=== PATIENT | female | born 1960 | race Caucasian/White ===

== ENCOUNTER 2023-01-03 01:34 | Inpatient (IN) | payer MEDICAID ==
[~2023-01-03] VITALS: Ht 162.6 cm; Wt 81.6 kg
[~2023-01-03 01:34] MED LIST: AMOX-423 PO; BENZ1TAB7 PO; BUPR-120 PO; CYCL10TA24 PO; DITXL5 PO; FERR-31 PO; FLUT1BLS5 IH; HYDR25TA4 PO; ISOS60TA71 PO; LEVE250T2 PO; MECL-225 PO; NOR10 PO; OMEP40CA20 PO; ONDA4TAB55 PO; POTA-197 PO; PRED50TA PO; ROPI0.255 PO
[2023-01-03 01:42] VITALS: BP_SYST 132
--- NOTE | 2023-01-03 01:42 | NUR ---
Patient to ER HALLWAY BED for evaluation. Report given to LILY GOMEZ
--- NOTE | 2023-01-03 01:45 | NUR ---
ER at bedside examining patient.
--- NOTE | 2023-01-03 01:45 | NUR ---
PATIENT BIB BLS COMPLAINING OF INCREASED AUDITORY HALLUCTIONATIONS. HX OF SCHIZOPHRENIA. DENIES ANY SI/HI. DENIES ANY PAIN. VSS. NAD.
[2023-01-03 02:20] LABS: BASOPHILS # (AUTO) 0.1 K/uL (0.0-0.2); BASOPHILS % (AUTO) 0.7 % (0.0-2.0); EOSINOPHILS # (AUTO) 0.1 K/uL (0.0-0.4); EOSINOPHILS % (AUTO) 0.9 % (0.0-4.0); HEMATOCRIT 36.4 % (36-48); HEMOGLOBIN 12.4 g/dL (12.0-16.0); LYMPHOCYTES # (AUTO) 2.6 K/uL (1.0-5.5); LYMPHOCYTES % (AUTO) 17.4 % (20.5-51.5); MEAN CORPUSCULAR HEMOGLOBIN 31 pg (27-31); MEAN CORPUSCULAR HGB CONC 34 % (32-36); MEAN CORPUSCULAR VOLUME 92 fL (79.0-98.0); MONOCYTES # (AUTO) 1.6 K/uL (0.0-1.0); MONOCYTES % (AUTO) 10.7 % (1.7-9.3); NEUTROPHILS # (AUTO) 10.4 K/uL (1.8-7.7); NEUTROPHILS % (AUTO) 70.3 % (40.0-70.0); PLATELET COUNT (AUTO) 366 K/uL (130-430); RED BLOOD CELL COUNT(AUTO) 3.98 MIL/uL (4.2-6.2); RED CELL DISTRIBUTION WIDTH 14.1 % (9.0-15.0); WHITE BLOOD COUNT (AUTO) 14.8 K/uL (4.8-10.8)
[2023-01-03 02:37] LABS: ALBUMIN 3.3 g/dL (3.4-4.8); CALCIUM 9.3 mg/dL (8.4-11.0); CREATININE 1.01 mg/dL (0.55-1.30); TOTAL BILIRUBIN 0.3 mg/dL (0.0-1.0)
[2023-01-03] MEDS ORDERED: POTASSIUM CHLORIDE 20 MEQ/PKT PACKET PO ONE (03:00)
--- NOTE | 2023-01-03 03:00 | NUR ---
PATIENT STATES SHE TAKES NORCO AT HOME FOR BACK PAIN. NEW ORDER FOR TORADOL IM.
[2023-01-03 03:07] LABS: BARBITURATE, URINE NEGATIVE (NEG <=200); BENZODIAZEPINE, URINE NEGATIVE (NEG <=150); CANNABINOID, URINE NEGATIVE (NEG <=50); COCAINE, URINE NEGATIVE (NEG <=150); METHAMPHETAMINES SCREEN,URINE NEGATIVE (NEG <=500); OPIATE, URINE NEGATIVE (NEG <=100); PHENCYCLIDINE SCREEN,URINE NEGATIVE (NEG <=25); URINE AMPHETAMINE NEGATIVE (NEG <=500); URINE METHADONE NEGATIVE (NEG <=200); URINE OXYCODONE SCREEN NEGATIVE (NEG <=100); URINE PROPOXYPHENE SCREEN NEGATIVE (NEG <=300)
[2023-01-03 03:08] LABS: UR TRICYCLIC ANTIDEPRESSANTS NEGATIVE (NEG <=300)
[2023-01-03 03:13] LABS: BILIRUBIN,URINE NEGATIVE (NEGATIVE); BLOOD, URINE NEGATIVE (NEGATIVE); CLARITY/URINE CLEAR (CLEAR); COLOR,URINE YELLOW (YELLOW); GLUCOSE,URINE NEGATIVE (NEGATIVE); KETONES,URINE NEGATIVE (NEGATIVE); LEUKOCYTE ESTERASE ,URINE 2+ (NEGATIVE); NITRITE, URINE NEGATIVE (NEGATIVE); PROTEIN URINE NEGATIVE (NEGATIVE)
[2023-01-03 03:14] LABS: UROBILINOGEN,URINE NEGATIVE (0.2-1.0)
[2023-01-03 03:15] LABS: BACTERIA,URINE RARE /HPF (None Seen)
[2023-01-03] MEDS ORDERED: KETOROLAC TROMETHAMINE 60 MG/2 ML VIAL IM ONE (03:15)
[2023-01-03] MEDS ORDERED: HALOPERIDOL LACTATE 5 MG/ML VIAL IM ONE ×2 (03:30→07:45)
--- NOTE | 2023-01-03 03:52 | NUR ---
PATIENT ACTIVELY AND LOUDLY RESPONDING TO INTERNAL STIMULI. PT DENIES COMMAND AH. NEW ORDER FOR HALDOL.
--- NOTE | 2023-01-03 06:39 | NUR ---
NOTIFIED ED ADMITTING, SONNY, REGARDING DR. LEE'S REQUEST FOR ADMISSION. PER DR. LEE PT IS NOT STABLE FOR TRANSFER. WILL CONTACT CREATIVE PERFUMER REGARDING THIS MATTER. PER FACESHEET: [facility]
[2023-01-03] MEDS ORDERED: cefTRIAXone 1 GM in LIDOCAINE 1%, 20 ML MDV 2.1 ML IM ONE (07:00)
[2023-01-03] MEDS ORDERED: NACL 0.9% 1,000 ML IV SCH (07:15)
--- NOTE | 2023-01-03 07:18 | NUR ---
Admit bed requested Patient will be admitted to care of . Admitted to TELE unit. Diagnosis HYPONATREMIA, HYPOKALEMIA Inpatient (Yes or No) YES Observation (Yes or No) NO Orientation concerns or request close to nursing station (Yes or No) NO Covid Status NA On vent or bipap NO Isolation requirements NO Needs a sitter NO From Home (Yes or if No enter name of facility) HOME Requires Dialysis (Yes or No) NO Med Rec Completed (Yes of No) YES
[2023-01-03] MEDS ORDERED: OLAN5TAB71 PO (07:28)
[2023-01-03] MEDS ORDERED: MIRT-91 PO (07:28)
[2023-01-03] MEDS ORDERED: LISI40TA13 PO (07:28)
[2023-01-03] MEDS ORDERED: METO-442 PO (07:28)
[2023-01-03] MEDS ORDERED: MELO-89 PO (07:28)
[2023-01-03] MEDS ORDERED: ERGO1250 PO (07:28)
[2023-01-03] MEDS: NACL 0.9% 1,000 ML IV ONE ×2 (07:43→07:45)
[2023-01-03] MEDS ORDERED: cefTRIAXone 1 GM IVPB PREMIX 50 ML IV ONE (08:00)
--- NOTE | 2023-01-03 08:37 | NUR ---
BREAKFAST TRAY PROVIDED TO PT
[2023-01-03 09:40] VITALS: BP_SYST 144
--- NOTE | 2023-01-03 09:40 | NUR ---
Patient does not wish to proceed with medical care recommended by Dr mensah . Patient given information related to possible complications, up to and including , which could occur as a result of leaving hospital at this time. Patient verbalizes understanding of risks involved leaving against medical advice. Patient has signed AMA form.
[2023-01-03] MEDS ORDERED: CEPH-548 PO (09:42)
[2023-01-03] MEDS ORDERED: ALBMDI INH (09:42)
[2023-01-03] MEDS ORDERED: ALBUTEROL SULFATE 0.083% 2.5 MG/3 ML VIAL.NEB INH ONE (09:45)
--- NOTE | 2023-01-03 09:46 | NUR ---
NOTIFIED MST AND DR. BARNES PT SIGNED OUT AMA
== END 2023-01-03 09:46 | disposition left against medical advice (07) | DRG 463 ==
LOC: SED 01:34 → STU 07:06
PROVIDERS: ADMIT Internal Medicine; ATTEND Internal Medicine
DX: N39.0 Urinary tract infection, site not specified (principal); E87.1 Hypo-osmolality and hyponatremia; E87.6 Hypokalemia; J44.9 Chronic obstructive pulmonary disease, unspecified; I10 Essential (primary) hypertension; Z53.21 Procedure and treatment not carried out due to patient leaving prior to being seen by health care provider; I25.2 Old myocardial infarction; Z86.73 Personal history of transient ischemic attack (TIA), and cerebral infarction without residual deficits; Z79.899 Other long term (current) drug therapy
CPT/HCPCS: 36415; 80053; 80307; 81000; 85025; 96361; 96365; 96372; 99285; G0378; J0696; J1630; J1885; J2001; J7030; J7613

== ENCOUNTER 2023-02-25 16:38 | Emergency (ER) | payer MEDICAID ==
[~2023-02-25] VITALS: Ht 162.6 cm; Wt 74.8 kg
[~2023-02-25 16:38] MED LIST changes: +ALBMDI INH; +CEPH-548 PO; +ERGO1250 PO; +IBUP-1969 PO; +LISI40TA13 PO; +MELO-89 PO; +METO-442 PO; +MIRT-91 PO; +OLAN5TAB71 PO
[2023-02-25 16:46] VITALS: BP_SYST 175; PULSE 83; RESP 22; TEMP 96.6; O2SAT 99
[2023-02-25] MEDS ORDERED: ALBUTEROL SULFATE 0.083% 2.5 MG/3 ML VIAL.NEB INH ONE (17:45)
[2023-02-25] MEDS ORDERED: IPRATROPIUM BROM 0.5 MG/2.5 ML VIAL.NEB (ATROVENT) INH ONE (17:45)
[2023-02-25 18:14] LABS: BASOPHILS # (AUTO) 0.1 K/uL (0.0-0.2); BASOPHILS % (AUTO) 0.7 % (0.0-2.0); EOSINOPHILS # (AUTO) 0.1 K/uL (0.0-0.4); EOSINOPHILS % (AUTO) 1.3 % (0.0-4.0); HEMATOCRIT 36.4 % (36-48); HEMOGLOBIN 11.7 g/dL (12.0-16.0); LYMPHOCYTES # (AUTO) 1.3 K/uL (1.0-5.5); LYMPHOCYTES % (AUTO) 15.8 % (20.5-51.5); MEAN CORPUSCULAR HEMOGLOBIN 30 pg (27-31); MEAN CORPUSCULAR HGB CONC 32 % (32-36); MEAN CORPUSCULAR VOLUME 93 fL (79.0-98.0); MONOCYTES # (AUTO) 0.5 K/uL (0.0-1.0); MONOCYTES % (AUTO) 6.4 % (1.7-9.3); NEUTROPHILS % (AUTO) 75.8 % (40.0-70.0); PLATELET COUNT (AUTO) 248 K/uL (130-430); RED CELL DISTRIBUTION WIDTH 13.8 % (9.0-15.0)
[2023-02-25 18:22] LABS: ANION GAP 5 (5-15); CALCIUM 9.1 mg/dL (8.4-11.0); CARBON DIOXIDE 36 mmol/L (23-29); CHLORIDE 98 mmol/L (98-107); CREATININE 0.64 mg/dL (0.55-1.30); GFR AFRICAN AMERICAN 121 mL/min (>90); GLUCOSE 104 mg/dL (74-106); POTASSIUM 3.3 mmol/L (3.5-5.1); SODIUM SERUM 139 mmol/L (136-145); UREA NITROGEN, BLOOD 5 mg/dL (8-21)
[2023-02-25 18:25] LABS: GFR NON AFRICAN-AMERICAN 100 mL/min (>90)
[2023-02-25 18:37] LABS: ALBUMIN 3.1 g/dL (3.4-4.8); ASPARTATE AMINOTRANSFERASE 16 U/L (10-37); TOTAL BILIRUBIN 0.5 mg/dL (0.0-1.0); TOTAL PROTEIN, SERUM 6.7 g/dL (6.4-8.3)
[2023-02-25 19:05] LABS: ALANINE AMINOTRANSFERASE 8 U/L (12-78)
[2023-02-25 19:47] LABS: INFLUENZA TYPE A negative (NEGATIVE); INFLUENZA TYPE B NEGATIVE (NEGATIVE)
[2023-02-25 19:48] LABS: COVID19 ANTIGEN SOFIA FIA NEGATIVE (NEGATIVE)
[2023-02-25] MEDS ORDERED: HYDROcodone/ACETAMIN 10-325 MG TAB PO ONE (20:45)
[2023-02-25 20:59] VITALS: BP_SYST 133; PULSE 82; RESP 20; TEMP 96.6; O2SAT 99
== END 2023-02-25 20:59 | disposition home or self-care (01) ==
LOC: SED 16:38
DX: J44.9 Chronic obstructive pulmonary disease, unspecified (principal); G89.29 Other chronic pain; M54.50 Low back pain, unspecified; R06.02 Shortness of breath; R05.9 Cough, unspecified; I10 Essential (primary) hypertension; Z79.899 Other long term (current) drug therapy; Z20.822 Contact with and (suspected) exposure to COVID-19
CPT/HCPCS: 80053; 83880; 85025; 84484; 36415; 93005; 71045; 94640; 99285; 83605; 87804 ×2; 87426; 82397; J7613

== ENCOUNTER 2023-05-04 18:00 | Inpatient (IN) | payer MEDICAID ==
[~2023-05-04] VITALS: Ht 162.6 cm; Wt 73.0 kg
[~2023-05-04 18:00] MED LIST changes: +ROPI0.2535 PO; -ROPI0.255 PO
[2023-05-04 18:31] VITALS: BP_SYST 115; PULSE 93; RESP 18; TEMP 98.3; O2SAT 74
[2023-05-04] MEDS ORDERED: NACL 0.9% 1,000 ML IV ONE (19:15)
[2023-05-04 19:56] LABS: BASOPHILS # (AUTO) 0.1 K/uL (0.0-0.2); EOSINOPHILS # (AUTO) 0.4 K/uL (0.0-0.4); EOSINOPHILS % (AUTO) 2.9 % (0.0-4.0); HEMATOCRIT 36.6 % (36-48); HEMOGLOBIN 11.9 g/dL (12.0-16.0); LYMPHOCYTES # (AUTO) 2.2 K/uL (1.0-5.5); LYMPHOCYTES % (AUTO) 17.3 % (20.5-51.5); MEAN CORPUSCULAR HEMOGLOBIN 30 pg (27-31); MEAN CORPUSCULAR HGB CONC 33 % (32-36); MEAN CORPUSCULAR VOLUME 91 fL (79.0-98.0); MONOCYTES % (AUTO) 7.9 % (1.7-9.3); NEUTROPHILS # (AUTO) 9.2 K/uL (1.8-7.7); NEUTROPHILS % (AUTO) 70.9 % (40.0-70.0); PLATELET COUNT (AUTO) 520 K/uL (130-430); RED BLOOD CELL COUNT(AUTO) 4.03 MIL/uL (4.2-6.2); RED CELL DISTRIBUTION WIDTH 13.9 % (9.0-15.0); WHITE BLOOD COUNT (AUTO) 12.9 K/uL (4.8-10.8)
[2023-05-04 20:13] LABS: PROTHROMBIN TIME 10.3 SECS (9.5-12.5)
[2023-05-04 20:19] LABS: ALBUMIN 2.7 g/dL (3.4-4.8); CALCIUM 9.8 mg/dL (8.4-11.0); CREATININE 0.91 mg/dL (0.55-1.30); POTASSIUM 4.1 mmol/L (3.5-5.1); TOTAL BILIRUBIN 0.2 mg/dL (0.0-1.0); TOTAL PROTEIN, SERUM 7.6 g/dL (6.4-8.3)
[2023-05-04 21:01] LABS: BILIRUBIN,URINE NEGATIVE (NEGATIVE); BLOOD, URINE NEGATIVE (NEGATIVE); CLARITY/URINE CLEAR (CLEAR); COLOR,URINE YELLOW (YELLOW); GLUCOSE,URINE NEGATIVE (NEGATIVE); KETONES,URINE NEGATIVE (NEGATIVE); LEUKOCYTE ESTERASE ,URINE 1+ (NEGATIVE); NITRITE, URINE NEGATIVE (NEGATIVE); PH,URINE 5.5 (5.0-8.0); PROTEIN URINE NEGATIVE (NEGATIVE); UROBILINOGEN,URINE 0.2 (0.2-1.0)
[2023-05-04 21:08] LABS: BACTERIA,URINE MANY /HPF (None Seen); RBC,URINE NONE SEEN /HPF (0-3)
[2023-05-04 21:09] LABS: MUCUS,URINE None Seen /LPF (None Seen)
[2023-05-04] MEDS ORDERED: PIPERACILLIN/TAZO 3.375 GM in NS 50 ML IV ONE (22:15)
[2023-05-04] MEDS ORDERED: PIPERACILLIN/TAZOBACTAM 3.375 GM/VIAL (ZOSYN) IV ONE ×2 (22:15)
[2023-05-04] MEDS ORDERED: HYDROcodone/ACETAMIN 10-325 MG TAB PO ONE (23:00)
[2023-05-04] MEDS ORDERED: HYDROcodone/ACETAMIN 5-325 MG TAB (NORCO/ VICODIN) PO ONE (23:15)
[2023-05-05] VITALS (9 sets, daily range): BP systolic 104–125; PULSE 70–100; RESP 16–20; TEMP 96.8–98.4; O2SAT 94–98
[2023-05-05] MEDS: PIPERACILLIN/TAZO 3.375 GM in NS 50 ML IV SCH ×3 (06:46→21:35)
[2023-05-05 07:11] LABS: BASOPHILS # (AUTO) 0.1 K/uL (0.0-0.2); EOSINOPHILS # (AUTO) 0.3 K/uL (0.0-0.4); EOSINOPHILS % (AUTO) 3.3 % (0.0-4.0); HEMATOCRIT 33.9 % (36-48); HEMOGLOBIN 10.9 g/dL (12.0-16.0); LYMPHOCYTES # (AUTO) 1.8 K/uL (1.0-5.5); LYMPHOCYTES % (AUTO) 21.3 % (20.5-51.5); MEAN CORPUSCULAR HEMOGLOBIN 29 pg (27-31); MEAN CORPUSCULAR HGB CONC 32 % (32-36); MEAN CORPUSCULAR VOLUME 91 fL (79.0-98.0); MONOCYTES # (AUTO) 0.7 K/uL (0.0-1.0); MONOCYTES % (AUTO) 7.9 % (1.7-9.3); NEUTROPHILS # (AUTO) 5.6 K/uL (1.8-7.7); NEUTROPHILS % (AUTO) 66.5 % (40.0-70.0); PLATELET COUNT (AUTO) 380 K/uL (130-430); RED BLOOD CELL COUNT(AUTO) 3.74 MIL/uL (4.2-6.2); RED CELL DISTRIBUTION WIDTH 13.9 % (9.0-15.0)
[2023-05-05 07:21] LABS: ALBUMIN 2.3 g/dL (3.4-4.8); CALCIUM 8.8 mg/dL (8.4-11.0); CREATININE 0.67 mg/dL (0.55-1.30); POTASSIUM 3.6 mmol/L (3.5-5.1); TOTAL BILIRUBIN 0.1 mg/dL (0.0-1.0); TOTAL PROTEIN, SERUM 6.1 g/dL (6.4-8.3)
[2023-05-05 07:24] LABS: WHITE BLOOD COUNT (AUTO) 8.5 K/uL (4.8-10.8)
[2023-05-05] MEDS ORDERED: ONDANSETRON 4 MG ODT TAB PO PRN (11:00)
[2023-05-05] MEDS: MELOXICAM 7.5 MG TABLET PO PRN (11:53)
[2023-05-05] MEDS: IPRATROPIUM/ALBUTEROL SULFATE 3 ML AMPUL.NEB (DUONEB) INH PRN (15:24)
[2023-05-05] MEDS: OLANZapine 5 MG TABLET PO SCH (20:39)
[2023-05-05] MEDS: BENZTROPINE MESYLATE 1 MG TABLET PO SCH (20:39)
[2023-05-05] MEDS: ISOSORBIDE MONONITRATE 30 MG TAB.ER.24H PO SCH (20:39)
[2023-05-05] MEDS: roPINIRole HCL 0.25 MG ( REQUIP )TABLET PO SCH (20:39)
[2023-05-05] MEDS: CYCLOBENZAPRINE HCL 10 MG TABLET (FLEXERIL) PO SCH (20:40)
[2023-05-05] MEDS: levETIRAcetam 500 MG TABLET PO SCH (20:40)
[2023-05-05] MEDS ORDERED: MILK OF MAGNESIA 30 ML UDC PO PRN (23:45)
[2023-05-06] VITALS (7 sets, daily range): BP systolic 100–121; PULSE 65–98; RESP 18–20; TEMP 95.7–97.8; O2SAT 93–98
[2023-05-06] MEDS: PIPERACILLIN/TAZO 3.375 GM in NS 50 ML IV SCH ×3 (05:20→21:02)
[2023-05-06] MEDS: amLODIPine BESYLATE 10 MG TABLET PO SCH (09:08)
[2023-05-06] MEDS: FERROUS SULFATE 325 MG TABLET.DR PO SCH (09:09)
[2023-05-06] MEDS: METOPROLOL TARTRATE 50 MG TABLET PO SCH (09:09)
[2023-05-06] MEDS: ISOSORBIDE MONONITRATE 30 MG TAB.ER.24H PO SCH ×2 (09:09→20:56)
[2023-05-06] MEDS: oxyBUTYnin chloride 5 MG TABLET PO SCH ×2 (09:10→20:57)
[2023-05-06] MEDS: OLANZapine 5 MG TABLET PO SCH ×2 (09:10→20:57)
[2023-05-06] MEDS: levETIRAcetam 500 MG TABLET PO SCH ×2 (09:10→20:56)
[2023-05-06] MEDS: buPROPion HCL 150 MG XL TAB PO SCH (09:11)
[2023-05-06] MEDS: CYCLOBENZAPRINE HCL 10 MG TABLET (FLEXERIL) PO SCH ×2 (09:11→20:57)
[2023-05-06] MEDS: PANTOPRAZOLE SODIUM 40 MG TAB PO SCH (09:11)
[2023-05-06] MEDS: BENZTROPINE MESYLATE 1 MG TABLET PO SCH ×2 (09:11→20:57)
[2023-05-06] MEDS: MELOXICAM 7.5 MG TABLET PO PRN (14:48)
[2023-05-06] MEDS: IPRATROPIUM/ALBUTEROL SULFATE 3 ML AMPUL.NEB (DUONEB) INH PRN (14:58)
[2023-05-06] MEDS ORDERED: NALOXONE HCL 0.4 MG/ML AMP (NARCAN) IVP PRN (19:30)
[2023-05-06] MEDS: roPINIRole HCL 0.25 MG ( REQUIP )TABLET PO SCH (20:56)
[2023-05-06] MEDS: HYDROcodone/ACETAMIN 5-325 MG TAB (NORCO/ VICODIN) PO PRN (21:02)
[2023-05-06] MEDS: ZOLPIDEM TARTRATE 5 MG TABLET PO PRN (23:09)
[2023-05-07] VITALS (7 sets, daily range): BP systolic 105–130; PULSE 55–73; RESP 18; TEMP 97.9–98.5; O2SAT 0–95
[2023-05-07] MEDS: PIPERACILLIN/TAZO 3.375 GM in NS 50 ML IV SCH ×3 (05:32→22:24)
[2023-05-07] MEDS ORDERED: NON-FORMULARY MEDICATION (Ergocalciferol (Vitamin D2) (Vitamin D2) 1 CAP) PO SCH (06:00)
[2023-05-07] MEDS ORDERED: ERGOCALCIFEROL PO SCH (06:00)
[2023-05-07 07:26] LABS: BASOPHILS # (AUTO) 0.1 K/uL (0.0-0.2); BASOPHILS % (AUTO) 0.9 % (0.0-2.0); EOSINOPHILS # (AUTO) 0.2 K/uL (0.0-0.4); EOSINOPHILS % (AUTO) 2.6 % (0.0-4.0); HEMATOCRIT 30.8 % (36-48); LYMPHOCYTES # (AUTO) 1.7 K/uL (1.0-5.5); LYMPHOCYTES % (AUTO) 20.7 % (20.5-51.5); MEAN CORPUSCULAR HEMOGLOBIN 29 pg (27-31); MEAN CORPUSCULAR HGB CONC 33 % (32-36); MEAN CORPUSCULAR VOLUME 90 fL (79.0-98.0); MONOCYTES # (AUTO) 0.6 K/uL (0.0-1.0); MONOCYTES % (AUTO) 7.3 % (1.7-9.3); NEUTROPHILS # (AUTO) 5.7 K/uL (1.8-7.7); NEUTROPHILS % (AUTO) 68.5 % (40.0-70.0); PLATELET COUNT (AUTO) 362 K/uL (130-430); RED BLOOD CELL COUNT(AUTO) 3.43 MIL/uL (4.2-6.2); RED CELL DISTRIBUTION WIDTH 14.4 % (9.0-15.0); WHITE BLOOD COUNT (AUTO) 8.3 K/uL (4.8-10.8)
[2023-05-07 07:51] LABS: CALCIUM 9.1 mg/dL (8.4-11.0); CREATININE 0.65 mg/dL (0.55-1.30)
[2023-05-07] MEDS: OLANZapine 5 MG TABLET PO SCH ×2 (08:25→21:21)
[2023-05-07] MEDS: CYCLOBENZAPRINE HCL 10 MG TABLET (FLEXERIL) PO SCH ×2 (08:25→21:21)
[2023-05-07] MEDS: BENZTROPINE MESYLATE 1 MG TABLET PO SCH ×2 (08:25→21:21)
[2023-05-07] MEDS: levETIRAcetam 500 MG TABLET PO SCH ×2 (08:25→21:21)
[2023-05-07] MEDS: PANTOPRAZOLE SODIUM 40 MG TAB PO SCH (08:25)
[2023-05-07] MEDS: HYDROcodone/ACETAMIN 5-325 MG TAB (NORCO/ VICODIN) PO PRN ×2 (08:25→14:31)
[2023-05-07] MEDS: FERROUS SULFATE 325 MG TABLET.DR PO SCH (08:25)
[2023-05-07] MEDS: oxyBUTYnin chloride 5 MG TABLET PO SCH ×2 (08:26→21:21)
[2023-05-07] MEDS: ISOSORBIDE MONONITRATE 30 MG TAB.ER.24H PO SCH ×2 (08:28→21:22)
[2023-05-07] MEDS: amLODIPine BESYLATE 10 MG TABLET PO SCH (08:28)
[2023-05-07] MEDS: METOPROLOL TARTRATE 50 MG TABLET PO SCH (08:29)
[2023-05-07] MEDS: buPROPion HCL 150 MG XL TAB PO SCH (08:35)
[2023-05-07] MEDS ORDERED: LIDOCAINE 1%, 20 ML MDV 0 ML ONE (11:21)
[2023-05-07] MEDS ORDERED: fentaNYL CITRATE/PF 100 MCG/2 ML AMP ONE (11:22)
[2023-05-07] MEDS ORDERED: MIDAZOLAM HCL 5 MG/5 ML VIAL ONE (11:22)
[2023-05-07] MEDS ORDERED: POTASSIUM CHLORIDE 20 MEQ TABLET.ER PO ONE (13:15)
[2023-05-07] MEDS: roPINIRole HCL 0.25 MG ( REQUIP )TABLET PO SCH (21:21)
[2023-05-07] MEDS: ZOLPIDEM TARTRATE 5 MG TABLET PO PRN (21:23)
[2023-05-08] VITALS (9 sets, daily range): BP systolic 111–138; PULSE 59–86; RESP 16–18; TEMP 96.2–97.6; O2SAT 93–97
[2023-05-08 04:59] LABS: BASOPHILS # (AUTO) 0.1 K/uL (0.0-0.2); BASOPHILS % (AUTO) 0.7 % (0.0-2.0); EOSINOPHILS # (AUTO) 0.2 K/uL (0.0-0.4); EOSINOPHILS % (AUTO) 1.9 % (0.0-4.0); HEMATOCRIT 30.7 % (36-48); LYMPHOCYTES # (AUTO) 1.6 K/uL (1.0-5.5); LYMPHOCYTES % (AUTO) 17.9 % (20.5-51.5); MEAN CORPUSCULAR HEMOGLOBIN 29 pg (27-31); MEAN CORPUSCULAR HGB CONC 33 % (32-36); MEAN CORPUSCULAR VOLUME 90 fL (79.0-98.0); MONOCYTES # (AUTO) 0.7 K/uL (0.0-1.0); MONOCYTES % (AUTO) 7.6 % (1.7-9.3); NEUTROPHILS # (AUTO) 6.6 K/uL (1.8-7.7); NEUTROPHILS % (AUTO) 71.9 % (40.0-70.0); PLATELET COUNT (AUTO) 371 K/uL (130-430); RED BLOOD CELL COUNT(AUTO) 3.43 MIL/uL (4.2-6.2); RED CELL DISTRIBUTION WIDTH 14.1 % (9.0-15.0); WHITE BLOOD COUNT (AUTO) 9.1 K/uL (4.8-10.8)
[2023-05-08 05:10] LABS: CALCIUM 9.3 mg/dL (8.4-11.0); CREATININE 0.63 mg/dL (0.55-1.30); POTASSIUM 3.2 mmol/L (3.5-5.1)
[2023-05-08] MEDS: PIPERACILLIN/TAZO 3.375 GM in NS 50 ML IV SCH ×3 (06:00→22:16)
[2023-05-08 08:06] LABS: CA 27.29 28.7 U/mL (0.0-38.6)
[2023-05-08] MEDS: PANTOPRAZOLE SODIUM 40 MG TAB PO SCH (08:52)
[2023-05-08] MEDS: buPROPion HCL 150 MG XL TAB PO SCH (08:52)
[2023-05-08] MEDS: FERROUS SULFATE 325 MG TABLET.DR PO SCH (08:52)
[2023-05-08] MEDS: oxyBUTYnin chloride 5 MG TABLET PO SCH ×2 (08:52→20:44)
[2023-05-08] MEDS: BENZTROPINE MESYLATE 1 MG TABLET PO SCH ×2 (08:52→20:44)
[2023-05-08] MEDS: ISOSORBIDE MONONITRATE 30 MG TAB.ER.24H PO SCH ×2 (08:53→20:45)
[2023-05-08] MEDS: OLANZapine 5 MG TABLET PO SCH ×2 (08:53→20:44)
[2023-05-08] MEDS: levETIRAcetam 500 MG TABLET PO SCH ×2 (08:53→20:44)
[2023-05-08] MEDS: CYCLOBENZAPRINE HCL 10 MG TABLET (FLEXERIL) PO SCH ×2 (08:53→20:44)
[2023-05-08] MEDS: amLODIPine BESYLATE 10 MG TABLET PO SCH (08:54)
[2023-05-08] MEDS: METOPROLOL TARTRATE 50 MG TABLET PO SCH (08:55)
[2023-05-08 10:07] LABS: CANCER AG, 125 53.4 U/mL (0.0-38.1); CEA 2.8 ng/mL (0.0-4.7)
[2023-05-08] MEDS: HYDROcodone/ACETAMIN 5-325 MG TAB (NORCO/ VICODIN) PO PRN ×2 (11:03→16:01)
[2023-05-08] MEDS ORDERED: POTASSIUM CHLORIDE 20 MEQ TABLET.ER PO ONE (12:00)
[2023-05-08] MEDS ORDERED: SODIUM CL 3% FOR INHALATION 15 ML VIAL.NEB INH ONE ×2 (16:30→21:00)
[2023-05-08] MEDS: roPINIRole HCL 0.25 MG ( REQUIP )TABLET PO SCH (20:45)
[2023-05-09] VITALS (8 sets, daily range): BP systolic 113–139; PULSE 58–81; RESP 16–18; TEMP 96.8–98.6; O2SAT 92–97
[2023-05-09] MEDS: HYDROcodone/ACETAMIN 5-325 MG TAB (NORCO/ VICODIN) PO PRN ×2 (03:29→20:00)
[2023-05-09] MEDS ORDERED: SODIUM CL 3% FOR INHALATION 15 ML VIAL.NEB INH ONE (05:00)
[2023-05-09] MEDS: PIPERACILLIN/TAZO 3.375 GM in NS 50 ML IV SCH ×3 (05:59→22:33)
[2023-05-09] MEDS: ISOSORBIDE MONONITRATE 30 MG TAB.ER.24H PO SCH ×2 (09:56→20:04)
[2023-05-09] MEDS: OLANZapine 5 MG TABLET PO SCH ×2 (09:56→20:04)
[2023-05-09] MEDS: levETIRAcetam 500 MG TABLET PO SCH ×2 (09:56→20:04)
[2023-05-09] MEDS: CYCLOBENZAPRINE HCL 10 MG TABLET (FLEXERIL) PO SCH ×2 (09:56→20:04)
[2023-05-09] MEDS: buPROPion HCL 150 MG XL TAB PO SCH (09:56)
[2023-05-09] MEDS: METOPROLOL TARTRATE 50 MG TABLET PO SCH (09:57)
[2023-05-09] MEDS: BENZTROPINE MESYLATE 1 MG TABLET PO SCH ×2 (09:57→20:04)
[2023-05-09] MEDS: amLODIPine BESYLATE 10 MG TABLET PO SCH (09:57)
[2023-05-09] MEDS: FERROUS SULFATE 325 MG TABLET.DR PO SCH (09:57)
[2023-05-09] MEDS: PANTOPRAZOLE SODIUM 40 MG TAB PO SCH (09:58)
[2023-05-09] MEDS: oxyBUTYnin chloride 5 MG TABLET PO SCH ×2 (09:58→20:04)
[2023-05-09] MEDS: MELOXICAM 7.5 MG TABLET PO PRN (16:50)
[2023-05-09] MEDS: roPINIRole HCL 0.25 MG ( REQUIP )TABLET PO SCH (20:04)
[2023-05-09] MEDS: ZOLPIDEM TARTRATE 5 MG TABLET PO PRN (22:14)
[2023-05-10] VITALS (7 sets, daily range): BP systolic 110–141; PULSE 60–74; RESP 16–18; TEMP 96.9–98.3; O2SAT 91–96
[2023-05-10] MEDS: PIPERACILLIN/TAZO 3.375 GM in NS 50 ML IV SCH ×3 (05:31→22:34)
[2023-05-10] MEDS: HYDROcodone/ACETAMIN 5-325 MG TAB (NORCO/ VICODIN) PO PRN ×3 (05:57→20:06)
[2023-05-10] MEDS: ISOSORBIDE MONONITRATE 30 MG TAB.ER.24H PO SCH ×2 (09:47→21:10)
[2023-05-10] MEDS: OLANZapine 5 MG TABLET PO SCH ×2 (09:47→21:10)
[2023-05-10] MEDS: FERROUS SULFATE 325 MG TABLET.DR PO SCH (09:48)
[2023-05-10] MEDS: METOPROLOL TARTRATE 50 MG TABLET PO SCH (09:48)
[2023-05-10] MEDS: PANTOPRAZOLE SODIUM 40 MG TAB PO SCH (09:48)
[2023-05-10] MEDS: BENZTROPINE MESYLATE 1 MG TABLET PO SCH ×2 (09:48→21:11)
[2023-05-10] MEDS: oxyBUTYnin chloride 5 MG TABLET PO SCH ×2 (09:48→21:11)
[2023-05-10] MEDS: levETIRAcetam 500 MG TABLET PO SCH ×2 (09:48→21:11)
[2023-05-10] MEDS: buPROPion HCL 150 MG XL TAB PO SCH (09:48)
[2023-05-10] MEDS: amLODIPine BESYLATE 10 MG TABLET PO SCH (09:49)
[2023-05-10] MEDS: CYCLOBENZAPRINE HCL 10 MG TABLET (FLEXERIL) PO SCH ×2 (09:49→21:11)
[2023-05-10 11:07] LABS: QUANTIFERON TB GOLD Negative (Negative)
[2023-05-10] MEDS: roPINIRole HCL 0.25 MG ( REQUIP )TABLET PO SCH (21:11)
[2023-05-11 01:03] VITALS: BP_SYST 124; PULSE 65; RESP 15; TEMP 97.2; O2SAT 93
[2023-05-11] MEDS: HYDROcodone/ACETAMIN 5-325 MG TAB (NORCO/ VICODIN) PO PRN ×2 (05:16→13:25)
[2023-05-11] MEDS: PIPERACILLIN/TAZO 3.375 GM in NS 50 ML IV SCH ×2 (05:29→13:24)
[2023-05-11 05:32] LABS: BASOPHILS # (AUTO) 0.1 K/uL (0.0-0.2); EOSINOPHILS # (AUTO) 0.2 K/uL (0.0-0.4); EOSINOPHILS % (AUTO) 2.1 % (0.0-4.0); HEMATOCRIT 33.9 % (36-48); HEMOGLOBIN 10.9 g/dL (12.0-16.0); LYMPHOCYTES # (AUTO) 2.1 K/uL (1.0-5.5); LYMPHOCYTES % (AUTO) 25.1 % (20.5-51.5); MEAN CORPUSCULAR HEMOGLOBIN 29 pg (27-31); MEAN CORPUSCULAR HGB CONC 32 % (32-36); MEAN CORPUSCULAR VOLUME 90 fL (79.0-98.0); MONOCYTES # (AUTO) 0.7 K/uL (0.0-1.0); MONOCYTES % (AUTO) 8.4 % (1.7-9.3); NEUTROPHILS # (AUTO) 5.2 K/uL (1.8-7.7); NEUTROPHILS % (AUTO) 63.4 % (40.0-70.0); PLATELET COUNT (AUTO) 295 K/uL (130-430); RED BLOOD CELL COUNT(AUTO) 3.78 MIL/uL (4.2-6.2); RED CELL DISTRIBUTION WIDTH 14.3 % (9.0-15.0); WHITE BLOOD COUNT (AUTO) 8.3 K/uL (4.8-10.8)
[2023-05-11 06:10] LABS: CREATININE 0.64 mg/dL (0.55-1.30)
[2023-05-11 07:30] VITALS: BP_SYST 140; PULSE 65; RESP 18; TEMP 98.2; O2SAT 94
[2023-05-11] MEDS: CYCLOBENZAPRINE HCL 10 MG TABLET (FLEXERIL) PO SCH (08:50)
[2023-05-11] MEDS: levETIRAcetam 500 MG TABLET PO SCH (08:51)
[2023-05-11] MEDS: PANTOPRAZOLE SODIUM 40 MG TAB PO SCH (08:51)
[2023-05-11] MEDS: FERROUS SULFATE 325 MG TABLET.DR PO SCH (08:51)
[2023-05-11] MEDS: oxyBUTYnin chloride 5 MG TABLET PO SCH (08:51)
[2023-05-11] MEDS: buPROPion HCL 150 MG XL TAB PO SCH (08:52)
[2023-05-11] MEDS: amLODIPine BESYLATE 10 MG TABLET PO SCH (08:53)
[2023-05-11] MEDS: OLANZapine 5 MG TABLET PO SCH (08:53)
[2023-05-11] MEDS: BENZTROPINE MESYLATE 1 MG TABLET PO SCH (08:54)
[2023-05-11] MEDS: ISOSORBIDE MONONITRATE 30 MG TAB.ER.24H PO SCH (08:54)
[2023-05-11] MEDS: METOPROLOL TARTRATE 50 MG TABLET PO SCH (08:55)
[2023-05-11 09:03] VITALS: BP_SYST 124; PULSE 65; O2SAT 93
[2023-05-11 12:42] VITALS: BP_SYST 114; PULSE 65; RESP 18; TEMP 97.6; O2SAT 97
[2023-05-11 13:07] LABS: ANGIOTENSION CONVERTING ENZYME 10 U/L (14-82)
[2023-05-11 13:07] LABS: ANTI NUCLEAR AB WITH REFLEX Negative (Negative)
[2023-05-11 15:06] LABS: ATYPICAL pANCA <1:20 titer (Neg:<1:20); CYTOPLASMIC (C-ANCA) <1:20 titer (Neg:<1:20); CYTOPLASMIC (P-ANCA) <1:20 titer (Neg:<1:20)
[2023-05-11] MEDS ORDERED: LEVO-62 PO (15:35)
[2023-05-11 16:39] VITALS: BP_SYST 117; PULSE 66; RESP 17; TEMP 97.4; O2SAT 97
== END 2023-05-11 18:30 | disposition home or self-care (01) | DRG 720 ==
LOC: SED 18:00 → SMU 05-05 03:19
PROVIDERS: ADMIT Internal Medicine; ATTEND Internal Medicine
PROC: 0BBF3ZX Excision of Right Lower Lung Lobe, Percutaneous Approach, Diagnostic (ICD-10-PCS; principal; 2023-05-07)
DX: A41.9 Sepsis, unspecified organism (principal); E43 Unspecified severe protein-calorie malnutrition; F03.90 Unspecified dementia, unspecified severity, without behavioral disturbance, psychotic disturbance, mood disturbance, and anxiety; N39.0 Urinary tract infection, site not specified; Z20.822 Contact with and (suspected) exposure to COVID-19; I10 Essential (primary) hypertension; F17.210 Nicotine dependence, cigarettes, uncomplicated; J44.9 Chronic obstructive pulmonary disease, unspecified; Z79.2 Long term (current) use of antibiotics; Z79.899 Other long term (current) drug therapy; Z68.27 Body mass index [BMI] 27.0-27.9, adult; R91.1 Solitary pulmonary nodule
CPT/HCPCS: 36415; 71045; 71270-TC; 76376; 80048; 80053; 81000; 81001; 81015; 82164; 82378; 83605; 85025; 85610-TC; 85730-TC; 86038; 86256; 86300; 86301; 86304; 86480; 86635; 87040; 87086; 87305; 88305; 88313; 94640; 94760; 96361; 96365; 97110-GP; 97116-GP; 97530-GP; 99285; J2001; J2250; J2543; J3010; J7131

== ENCOUNTER 2023-06-15 15:56 | Emergency (ER) | payer MEDICAID ==
[~2023-06-15] VITALS: Ht 162.6 cm; Wt 63.5 kg
[~2023-06-15 15:56] MED LIST changes: -AMOX-423 PO; -CEPH-548 PO; -HYDR25TA4 PO; -IBUP-1969 PO; +LEVO-62 PO; -LISI40TA13 PO; -MIRT-91 PO; -PRED50TA PO
[2023-06-15 16:05] VITALS: BP_SYST 125; PULSE 101; RESP 18; TEMP 98.3; O2SAT 96
[2023-06-15 16:57] LABS: BASOPHILS # (AUTO) 0.1 K/uL (0.0-0.2); BASOPHILS % (AUTO) 0.7 % (0.0-2.0); EOSINOPHILS # (AUTO) 0.2 K/uL (0.0-0.4); EOSINOPHILS % (AUTO) 2.5 % (0.0-4.0); HEMATOCRIT 35.6 % (36-48); HEMOGLOBIN 11.6 g/dL (12.0-16.0); LYMPHOCYTES # (AUTO) 1.9 K/uL (1.0-5.5); LYMPHOCYTES % (AUTO) 22.4 % (20.5-51.5); MEAN CORPUSCULAR HEMOGLOBIN 30 pg (27-31); MEAN CORPUSCULAR HGB CONC 33 % (32-36); MEAN CORPUSCULAR VOLUME 92 fL (79.0-98.0); MONOCYTES # (AUTO) 0.9 K/uL (0.0-1.0); MONOCYTES % (AUTO) 10.2 % (1.7-9.3); NEUTROPHILS # (AUTO) 5.5 K/uL (1.8-7.7); NEUTROPHILS % (AUTO) 64.2 % (40.0-70.0); PLATELET COUNT (AUTO) 277 K/uL (130-430); RED BLOOD CELL COUNT(AUTO) 3.89 MIL/uL (4.2-6.2); RED CELL DISTRIBUTION WIDTH 16.2 % (9.0-15.0); WHITE BLOOD COUNT (AUTO) 8.6 K/uL (4.8-10.8)
[2023-06-15 17:06] LABS: INR 0.9 (0.8-1.2); PROTHROMBIN TIME 9.8 SECS (9.5-12.5)
[2023-06-15 17:17] LABS: ALANINE AMINOTRANSFERASE 13 U/L (12-78); ALBUMIN 2.9 g/dL (3.4-4.8); ANION GAP 8 (5-15); ASPARTATE AMINOTRANSFERASE 15 U/L (10-37); BILIRUBIN,DIRECT 0.1 mg/dL (0.0-0.3); CALCIUM 9.2 mg/dL (8.4-11.0); CARBON DIOXIDE 33 mmol/L (23-29); CHLORIDE 96 mmol/L (98-107); CREATINE KINASE, TOTAL 24 U/L (26-192); CREATININE 0.67 mg/dL (0.55-1.30); GFR AFRICAN AMERICAN 114 mL/min (>90); GLUCOSE 107 mg/dL (74-106); SODIUM SERUM 137 mmol/L (136-145); THYROID STIMULATING HORMONE 1.36 uIu/mL (0.34-4.82); TOTAL BILIRUBIN 0.2 mg/dL (0.0-1.0); TOTAL PROTEIN, SERUM 6.4 g/dL (6.4-8.3); UREA NITROGEN, BLOOD 16 mg/dL (8-21)
[2023-06-15 17:18] LABS: GFR NON AFRICAN-AMERICAN 94 mL/min (>90)
[2023-06-15 17:20] LABS: POTASSIUM 2.9 mmol/L (3.5-5.1)
[2023-06-15 17:24] LABS: ACETONE, SERUM NEGATIVE (NEGATIVE)
[2023-06-15] MEDS ORDERED: ALPRAZolam 0.25 MG TABLET PO ONE (17:45)
[2023-06-15] MEDS ORDERED: POTASSIUM CHLORIDE 20 MEQ/PKT PACKET PO ONE (17:45)
[2023-06-15 18:27] LABS: BILIRUBIN,URINE NEGATIVE (NEGATIVE); BLOOD, URINE NEGATIVE (NEGATIVE); COLOR,URINE YELLOW (YELLOW); GLUCOSE,URINE NEGATIVE (NEGATIVE); KETONES,URINE NEGATIVE (NEGATIVE); LEUKOCYTE ESTERASE ,URINE 1+ (NEGATIVE); NITRITE, URINE NEGATIVE (NEGATIVE); PH,URINE 6.5 (5.0-8.0); PROTEIN URINE NEGATIVE (NEGATIVE)
[2023-06-15 18:36] LABS: CLARITY/URINE SLIGHTLY HAZY (CLEAR)
[2023-06-15 18:54] LABS: BACTERIA,URINE FEW /HPF (None Seen); RBC,URINE 0-3 /HPF (0-3)
[2023-06-15] MEDS ORDERED: HYDROcodone/ACETAMIN 5-325 MG TAB (NORCO/ VICODIN) PO ONE (19:30)
[2023-06-15 22:14] VITALS: BP_SYST 126; PULSE 89; RESP 16; TEMP 97.3; O2SAT 96
== END 2023-06-15 22:14 | disposition home or self-care (01) ==
LOC: SED 15:56
DX: F41.0 Panic disorder [episodic paroxysmal anxiety] (principal); I11.0 Hypertensive heart disease with heart failure; I50.9 Heart failure, unspecified; J44.9 Chronic obstructive pulmonary disease, unspecified; Z79.899 Other long term (current) drug therapy
CPT/HCPCS: 36415; 71045; 80048; 80076; 81000; 81001; 81015; 82009; 82550; 83605; 84439; 84443; 84484; 85025; 85610-TC; 85730-TC; 93005; 99285